=== PATIENT | male | born 1965 | race Caucasian/White ===

== ENCOUNTER 2018-01-03 09:26 | Emergency (ER) | payer OTHER ==
[2018-01-03] MEDS ORDERED: NS(*) 0.9% 1000 ML BAG 1,000 ML IV ONE (09:55)
[2018-01-03] MEDS ORDERED: PANT40TA65 PO (09:57)
--- NOTE | 2018-01-03 10:06 | ER Report ---
History and Physical Time Seen By MD: 09:45 Hx. of Stated Complaint: PT REPORTS CHEST TENDERNESS AND CONGESTION SINCE AND WORSENING HPI/ROS CHIEF COMPLAINT: cough, shortness of breath HISTORY OF PRESENT ILLNESS: Patient is a anna marie who lives in [place], and one month ago [place]. He notes that one week ago he had a 3 day episode of nausea, vomiting, diarrhea that resolved by Thursday. He notes that beginning on Thursday, he began to note he was short of breath though initially attributed this to being [place] 10,000 feet elevation. He did note chills on this day though these have not continued. Since this time, he has had productive yellowish-green sputum, associated with occasional cough, increased shortness of breath and slight discomfort with attempting to catch his breath. He notes no c hest pain or pressure. He has not had leg swelling and no prior DVT or PE. Patient is a nearly pack-a-day smoker. He admits to occasional alcoholic drink though not daily. Patient denies other ongoing medical problems. Patient has not had fevers, chills. He denies abdominal pain currently. REVIEW OF SYSTEMS: Constitutional: No fever, no chills. Eyes: No discharge. ENT: No sore throat. Cardiovascular: above Respiratory: above Gastrointestinal: above Genitourinary: no uti sympotms Musculoskeletal: No back pain. Skin: No rashes. Neurological: No headache. Remainder of the 14 system rev: Yes Allergies: Coded Allergies: acetaminophen (Verified Allergy, Unknown, 01/03/18) oxycodone (Verified Allergy, Unknown, 01/03/18) Home Meds Reported Medications Pantoprazole Sodium (PANTOPRAZOLE SODIUM) 40 Mg Tablet., 40 MG PO QDAY, TAB.SR 01/03/18 Reviewed Nurses Notes: Yes Hx Smoking: Yes Hx Substance Use Disorder: No Hx Alcohol Use: No Constitutional Vital Sign - Last 24 Hours 01/03/18 01/03/18 01/03/18 01/03/18 09:26 09:30 09:31 09:41 Temp 98.6 Pulse ??? 99 95 Resp 18 12 B/P (MAP) 147/103 147/103 (118) Pulse Ox 90 90 O2 Delivery Room Air 01/03/18 01/03/18 01/03/18 01/03/18 09:43 09:56 10:00 10:03 Pulse 91 Resp 15 B/P (MAP) 151/99 (116) 76/61 (66) 133/95 (108) Pulse Ox 93 01/03/18 01/03/18 01/03/18 01/03/18 10:11 10:18 10:26 10:30 Pulse ??? 92 Resp 12 B/P (MAP) 124/87 (99) Pulse Ox 96 O2 Flow Rate 2.0 01/03/18 01/03/18 01/03/18 01/03/18 10:41 10:56 11:00 11:11 Pulse 83 85 85 Resp 10 20 15 B/P (MAP) 117/87 (97) Pulse Ox 93 92 94 01/03/18 01/03/18 01/03/18 11:55 11:55 12:04 Pulse 75 82 Resp 18 18 Pulse Ox 86 O2 Delivery Room Air Physical Exam General Appearance: The patient is alert, has no immediate need for airway p rotection and no signs of toxicity. Eyes: Pupils equal and round no pallor or injection. ENT, Mouth: Mucous membranes are moist. Respiratory: occ basilar ronchi Cardiovascular: Regular rate and rhythm. no m/r/g Gastrointestinal: Abdomen is soft and non tender, no masses, bowel sounds normal. Neurological: alert, oriented, casper Skin: Warm and dry, no rashes. Musculoskeletal: Neck is supple non tender. Extremities are nontender, nonswollen and have full range of motion. No palpable masses DIFFERENTIAL DIAGNOSIS: After history and physical exam differential diagnosis was considered for shortness of breath including but not limited to pulmonary infectious process, COPD, asthma, pulmonary embolus and congestive heart failure, acs. Medical Decision Making Data Points Result Diagram: 01/03/1840 01/03/18 0940 Laboratory Hematology Test 01/03/18 09:40 Red Blood Count 5.34 M/uL (4.00-5.60) Mean Corpuscular Volume 90.6 fL (80.0-96.0) Mean Corpuscular Hemoglobin 30.1 pg (26.0-33.0) Mean Corpuscular Hemoglobin Concent 33.3 g/dL (32.0-36.0) Red Cell Distribution Width 13.3 % (11.5-14.5) Mean Platelet Volume 7.9 fL (7.2-11.1) Neutrophils (%) (Auto) 68.7 % (39.4-72.5) Lymphocytes (%) (Auto) 22.0 % (17.6-49.6) Monocytes (%) (Auto) 4.5 % (4.1-12.4) Eosinophils (%) (Auto) 3.8 % (0.4-6.7) Basophils (%) (Auto) 1.0 % (0.3-1.4) Nucleated RBC Relative Count (auto) 0.0 /100WBC Neutrophils # (Auto) 8.3 K/uL (2.0-7.4) Lymphocytes # (Auto) 2.6 K/uL (1.3-3.6) Monocytes # (Auto) 0.5 K/uL (0.3-1.0) Eosinophils # (Auto) 0.5 K/uL (0.0-0.5) Basophils # (Auto) 0.1 K/uL (0.0-0.1) Nucleated RBC Absolute Count (auto) 0.00 K/uL D-Dimer Quantitative (PE/DVT) 0.61 ug/ml (0-0.50) Sodium Level 138 mmol/L (137-145) Potassium Level 4.1 mmol/L (3.5-5.0) Chloride Level 102 mmol/L (98-107) Carbon Dioxide Level 24 mmol/L (22-30) Blood Urea Nitrogen 15 mg/dl (9-21) Creatinine 1.00 mg/dl (0.66-1.25) Glomerular Filtration Rate Calc > 60.0 Random Glucose 161 mg/dl (75-110) Lactate 1.3 mmol/L (0.7-2.1) Calcium Level 9.0 mg/dl (8.4-10.2) Total Bilirubin 0.5 mg/dl (0.2-1.3) Aspartate Amino Transf (AST/SGOT) 25 U/L (0-35) Alanine Aminotransferase (ALT/SGPT) 44 U/L (0-56) Alkaline Phosphatase 109 U/L (0-126) Troponin I < 0.012 ng/ml Total Protein 7.2 g/dl (6.3-8.2) Albumin 3.8 g/dl (3.5-5.0) Chemistry Test 01/03/18 09:40 White Blood Count 12.0 k/uL (4.5-11.0) Red Blood Count 5.34 M/uL (4.00-5.60) Hemoglobin 16.1 g/dL (14.0-18.0) Hematocrit 48.4 % (42.0-52.0) Mean Corpuscular Volume 90.6 fL (80.0-96.0) Mean Corpuscular Hemoglobin 30.1 pg (26.0-33.0) Mean Corpuscular Hemoglobin Concent 33.3 g/dL (32.0-36.0) Red Cell Distribution Width 13.3 % (11.5-14.5) Platelet Count 301 K/uL (150-450) Mean Platelet Volume 7.9 fL (7.2-11.1) Neutrophils (%) (Auto) 68.7 % (39.4-72.5) Lymphocytes (%) (Auto) 22.0 % (17.6-49.6) Monocytes (%) (Auto) 4.5 % (4.1-12.4) Eosinophils (%) (Auto) 3.8 % (0.4-6.7) Basophils (%) (Auto) 1.0 % (0.3-1.4) Nucleated RBC Relative Count (auto) 0.0 /100WBC Neutrophils # (Auto) 8.3 K/uL (2.0-7.4) Lymphocytes # (Auto) 2.6 K/uL (1.3-3.6) Monocytes # (Auto) 0.5 K/uL (0.3-1.0) Eosinophils # (Auto) 0.5 K/uL (0.0-0.5) Basophils # (Auto) 0.1 K/uL (0.0-0.1) Nucleated RBC Absolute Count (auto) 0.00 K/uL D-Dimer Quantitative (PE/DVT) 0.61 ug/ml (0-0.50) Glomerular Filtration Rate Calc > 60.0 Lactate 1.3 mmol/L (0.7-2.1) Calcium Level 9.0 mg/dl (8.4-10.2) Total Bilirubin 0.5 mg/dl (0.2-1.3) Aspartate Amino Transf (AST/SGOT) 25 U/L (0-35) Alanine Aminotransferase (ALT/SGPT) 44 U/L (0-56) Alkaline Phosphatase 109 U/L (0-126) Troponin I < 0.012 ng/ml Total Protein 7.2 g/dl (6.3-8.2) Albumin 3.8 g/dl (3.5-5.0) Coagulation Test 01/03/18 09:40 D-Dimer Quantitative (PE/DVT) 0.61 ug/ml EKG/Imaging EKG Interpretation 12 lead EKG: Rhythm: Normal sinus rhythm Golden: Normal QRS: Normal ST segments: Normal Monitor Interpretation: Normal Sinus Rhythm ED Course/Re-evaluation ED Course Patient is 52-year-old male with [id number] history of smoking, who presents with recent chills, shortness of breath cough with productive sputum. He also has hypoxia to 85% on room air at arrival. Initial evaluation is most consistent with infectious process, however chest x-ray does not clearly show focal pneumonia. Therefore, given recent travel as well, I ordered dimer to rule out evidence of PE. D-dimer is slightly elevated, so I discussed evaluation for PE with patient. After lengthy discussion, due to financial reasons, patient refused CT. after discussion, I am comfortable that he fully understands risks and benefits of further imaging especially given the nondiagnostic x-ray, despite my strong recommendation to have CT to rule out PE. Clinically, I feel pneumonia/bronchitis or infectious process is approximately 80% likely, with PE 10% likely or less, but cannot otherwise rule out. On reassessment of lower extremity, tp does not have any focal tenderness, edema. On ambulation, patient is not dyspneic. However reassessment continues to show room air saturations in the high 80s. At this point, the patient does not wish to stay for further care. He has received a DuoNeb with which he has some improvement and his mild dyspne a. He has received azithromycin 500 mg. I will send him with an inhaler and azithromycin 250 mg daily prescription. He will be remaining in the area for 2 more days, and agrees to return immediately for any worsening symptoms. Decision to Disposition Date: Jan 03, 2018 Decision to Disposition Time: 12:17 Depart Departure Latest Vital Signs Vital Signs Date Time Temp Pulse Resp B/P (MAP) Pulse Ox O2 Delivery O2 Flow Rate FiO2 01/03/18 12:04 82 18 01/03/18 11:55 86 Room Air 01/03/18 11:00 117/87 (97) 01/03/18 10:18 2.0 01/03/18 09:30 98.6 Impression: Primary Impression: Bronchitis Additional Impression: Hypoxia Condition: Improved Disposition: HOME OR SELF-CARE New Scripts Azithromycin (ZITHROMAX) 250 Mg Tablet 1 TAB PO QDAY for 4 Days, #4 TAB Prov: SOFIA SMITH MD 01/03/18 Patient Instructions: Acute Bronchitis (ED), Hypoxia (ED) Additional Instructions: As we discussed, your evaluation was incomplete here in that it was not clearly diagnostic of infectious process. As her symptoms do appear more infectious, I have initiated antibiotics. As you responded to nebulizer, I have prescribed an inhaler which she may take 2 puffs every 2-4 hours for shortness of breath. However, if her symptoms do not begin to improve, or worsen at any time, and if you have chest pain, lightheadedness or any other concerns, please return immediately for further evaluation as we discussed. Problem Qualifiers SOFIA SMITH MD Jan 03, 2018 10:06
[2018-01-03 10:12] LABS: PLATELET COUNT, AUTOMATED 301 K/uL (150-450)
--- NOTE | 2018-01-03 10:35 | RADIOLOGY IMAGING REPORT ---
FACILITY: [facility] PATIENT NAME: Jesse Anglin : 1965 MR: [id number] V: [id number] EXAM DATE: ORDERING PHYSICIAN: SOFIA SMITH TECHNOLOGIST: Location: [facility] Patient: Jesse Anglin : 1965 Visit/Account:[id number] Date of Sevice: 01/03/2018 CHEST PA AND LAT HISTORY: shortness of breath COMPARISON: None FINDINGS: Cardiomediastinal contours: Normal Lungs and pleura: Lungs are hyperexpanded with bronchial thickening. Reticular apical opacities, righ t greater than left. Otherwise no consolidation or pleural effusion. Bones/soft tissues: Normal Other findings: None significant IMPRESSION: 1. Hyperexpansion with bronchial thickening. Reticular apical opacities especially on the right of un certain chronicity. Chronic scarring favored over atypical infection. Report Dictated By: Doroteo Swartz MD at 01/03/2018 10:26 AM Report E-Signed By: Doroteo Swartz MD at 01/03/2018 10:30 AM WSN:[id number]
[2018-01-03 11:00] VITALS: BP 117/87
[2018-01-03] MEDS ORDERED: NS(*) 0.9% 50 ML BAG 0 ML ONE (11:25)
[2018-01-03] MEDS ORDERED: IOPAMIDOL 76% 75 ML INFUS BTL 0 ML ONE (11:25)
[2018-01-03] MEDS ORDERED: ALBUTEROL/IPRATROPIUM 3 ML NEB NEB ONE (11:50)
[2018-01-03] MEDS ORDERED: AZITHROMYCIN 250 MG TAB PO ONE (11:50)
[2018-01-03] MEDS ORDERED: ALBUTEROL 8 GM INHALER INH ONE (12:15)
--- NOTE | 2018-01-03 12:15 | EKG ---
FACILITY: [facility] [place] PATIENT NAME: CAROLYN GRIFFIN : [id number] MR: [id number] V: [id number] EXAM DATE: ORDERING PHYSICIAN: SOFIA SMITH TECHNOLOGIST: BENITO Test Reason : CHEST DISCOMFORT Blood Pressure : / mmHG Vent. Rate : 091 BPM Atrial Rate : 091 BPM P-R Int : 144 ms QRS Dur : 092 ms QT Int : 350 ms P-R-T Axes : 065 079 063 degrees QTc Int : 430 ms Normal sinus rhythm Normal ECG No previous ECGs available Confirmed by Tez Mata ([id number]) on 01/03/2018 2:13:37 PM Referred By: LUIS Confirmed By:Tez Payan
[2018-01-03] MEDS ORDERED: AZIT-1 PO (12:24)
== END 2018-01-03 12:36 | disposition home or self-care (01) ==
LOC: ER 09:48
DX: J40 Bronchitis, not specified as acute or chronic (principal); R09.02 Hypoxemia
CPT/HCPCS: 36415; 71046; 83605; 84484; 85025; 85379; 93005; 94640; 96360; 99284; J3535; J7030; J7620; Q0144; 82040; 82247; 82310; 82374; 82435; 82565; 82947; 84075; 84132; 84155; 84295; 84450; 84460; 84520; J7050; Q9967